=== PATIENT | female | born 1990 | race African-American/Black ===

== ENCOUNTER 2018-09-19 21:24 | Emergency (ER) | payer BC ==
[~2018-09-19] VITALS: Ht 160 cm; Wt 62.1 kg
[~2018-09-19 21:24] MED LIST: MECLIZINE HCL25 MG ORAL; NKM
--- NOTE | 2018-09-19 21:41 | Emergency Room Report ---
History of Present Illness General Chief Complaint: To Be Triaged Source: Patient Present Illness HPI Is a 28-year-old female with no past medical history she presents with epigastric and chest pain. Onset for last several days. Occur after she was eating. Now worse with eating. No fever chills. No radiation to the back. No nausea no vomiting. Pain is crampy in nature. Pain is 7 out of 10. Denies any other complaint. Allergies: Coded Allergies: No Known Allergies (Unverified , 04/21/13) Patient History Past Medical History: none, see triage record, old chart reviewed Past Surgical History: none Pertinent Family History: none Social History: Denies: smoking Now: No Immunizations: other Reviewed Nursing Documentation: PMH: Agreed; PSxH: Agreed Review of Systems Eye: Denies: eye pain, blurred vision ENT: Denies: ear pain, nose congestion, throat swelling Respiratory: Denies: cough, shortness of breath Cardiovascular: Reports: chest pain; Denies: palpitations Gastrointestinal: Reports: abdominal pain; Denies: diarrhea, nausea, vomiting Musculoskeletal: Denies: back pain, joint pain Skin: Denies: rash Neurological: Denies: headache, numbness Endocrine: Denies: increased thirst, increased urine Hematologic/Lymphatic: Denies: easy bruising All Other Systems: negative except mentioned in HPI Physical Exam vitals unremarkable Sp02 EP Interpretation: reviewed, normal General Appearance: well appearing, no apparent distress, alert Head: normocephalic, atraumatic Eyes: bilateral eye PERRL, bilateral eye EOMI ENT: hearing grossly normal, normal pharynx Neck: full range of motion, supple, no meningismus Respiratory: chest non-tender, lungs clear, normal breath sounds Cardiovascular #1: regular rate, rhythm, no murmur Gastrointestinal: normal bowel sounds, non tender, no mass, no organomegaly, no bruit, non-distended Musculoskeletal: back normal, gait/station normal, normal range of motion Psychiatric: mood/affect normal Skin: warm/dry Medical Decision Making Diagnostic Impression: Primary Impression: Epigastric abdominal pain ER Course Patient with epigastric abdominal pain. No evidence of ACS, PE, dissection to name a few. This is most likely peptic ulcer disease, GERD or gastritis. I see no evidence of gallstone. I did a bedside ultrasound and she has negative Kenney sign. Gallbladder is normal without any evidence of any stone. Common bile duct normal. He does have a slight elevation of lipase. She's not a drinker and I see no evidence of any common bile duct stone. Bilirubin is normal. Lab Results Impression labs unremarkable except for slight elevation of lipase and creat EKG Diagnostic Results Rate: normal Rhythm: NSR ST Segments: no acute changes Rhythm Strip Diag. Results Rhythm Strip Time: 22:11 EP Interpretation: yes Rate: 65 Rhythm: NSR, no PVC's, no ectopy Status: improved Disposition: HOME, SELF-CARE Condition: Stable Scripts Omeprazole Magnesium (PRILOSEC OTC) 20 Mg Tablet.dr 20 MG ORAL DAILY, #30 TAB Prov: Kj Hunter MD 09/19/18 Hydrocodone/Acetaminophen 5-325* (HYDROCODONE/ACETAMINOPHEN 5-325*) 1 Each Tablet 1 TAB ORAL Q6H PRN for For Pain, #15 TAB 0 Refills Prov: Kj Hunter MD 09/19/18 Additional Instructions: Follow-up your doctor in 2-5 days if not better. Return if symptom worsen. You may knee referred to see GI doctor for endoscopy if not better. Kj Hunter MD Sep 19, 2018 21:41
[2018-09-19] MEDS ORDERED: Pantoprazole Inj IVP ONE (21:45)
[2018-09-19] MEDS ORDERED: Mylanta II UD 30ml ORAL ONE (21:45)
[2018-09-19] MEDS ORDERED: NKM (21:45)
[2018-09-19 22:16] LABS: BASOPHILS % (AUTO) 1.2 % (0.0-2.0); EOSINOPHILS % (AUTO) 1.7 % (0.0-3.0); HEMATOCRIT 40.3 % (37.0-47.0); HEMOGLOBIN 13.3 G/DL (12.0-16.0); LYMPHOCYTES % (AUTO) 45.8 % (20.0-45.0); MEAN CORPUSCULAR VOLUME 90 FL (80-99); MONOCYTES % (AUTO) 6.5 % (1.0-10.0); NEUTROPHILS % (AUTO) 44.8 % (45.0-75.0); PLATELET COUNT 215 K/UL (150-450); RED BLOOD COUNT 4.48 M/UL (4.20-5.40); RED CELL DISTRIBUTION WIDTH 11.9 % (11.6-14.8); WHITE BLOOD COUNT 9.4 K/UL (4.8-10.8)
[2018-09-19 22:17] LABS: APPEARANCE,URINE CLEAR; BILIRUBIN, URINE NEGATIVE (NEGATIVE); COLOR,URINE PALE YELLOW; GLUCOSE, URINE (UA) NEGATIVE (NEGATIVE); KETONES,URINE NEGATIVE (NEGATIVE); LEUKOCYTE ESTERASE ,URINE NEGATIVE (NEGATIVE); NITRITE,URINE NEGATIVE (NEGATIVE); PH,URINE 5 (4.5-8.0); PROTEIN,URINE NEGATIVE (NEGATIVE); UROBILINOGEN,URINE NORMAL MG/DL (0.0-1.0)
[2018-09-19 22:18] VITALS: BP 118/70
[2018-09-19 22:24] LABS: ANION GAP 9 mmol/L (5-15); BLOOD UREA NITROGEN 18 mg/dL (7-18); CALCIUM 9.4 MG/DL (8.5-10.1); CARBON DIOXIDE 31 MMOL/L (21-32); CHLORIDE 102 MMOL/L (98-107); CREATININE 1.5 MG/DL (0.55-1.30); POTASSIUM 4.2 MMOL/L (3.5-5.1); SODIUM 141 MMOL/L (136-145)
[2018-09-19 22:28] LABS: ALANINE AMINOTRANSFERASE 18 U/L (12-78); ALBUMIN 3.8 G/DL (3.4-5.0); ALKALINE PHOSPHATASE 94 U/L (46-116); ASPARTATE AMINO TRANSFERASE 28 U/L (15-37); BILIRUBIN,TOTAL 0.2 MG/DL (0.2-1.0)
[2018-09-19] MEDS ORDERED: Morphine Sulfate 4mg/ml Inj (IV/IM USE ONLY) IVP ONE ×2 (22:30→23:15)
[2018-09-19] MEDS ORDERED: PRILOSEC OTC20 MG ORAL (23:05)
[2018-09-19] MEDS ORDERED: HYDROCODON-ACE1 EA15 ORAL (23:05)
[2018-09-19 23:17] VITALS: BP 118/70
== END 2018-09-19 23:21 | disposition home or self-care (01) ==
LOC: EMR 21:43
DX: R10.13 Epigastric pain (principal); R07.9 Chest pain, unspecified
CPT/HCPCS: 36415; 80053; 81003; 81025; 83690; 85025; 93005; 96374; 96375; 96376; 99284; C9113; J2270; J2405

== ENCOUNTER 2020-01-21 19:18 | Inpatient (IN) | payer BC ==
[~2020-01-21] VITALS: Ht 157.5 cm; Wt 62.6 kg
[2020-01-21] VITALS (7 sets, daily range): BP systolic 98–121; BP diastolic 64–72
[~2020-01-21 19:18] MED LIST changes: +HYDROCODON-ACE1 EA15 ORAL; +PRILOSEC OTC20 MG ORAL
--- NOTE | 2020-01-21 19:30 | NUR ---
ED Nurse Note: Patient walked in to ED c/o abnormal labs. Per pt, she received a call from Dr. Zepeda and was told that her Hgb is 6 and was asked to go to the ER. Pt stated that she has been bleeding on and off x 10 days but today it gets worse. Afebrile. No SOB. VSS. ERMD at bedside.
--- NOTE | 2020-01-21 19:35 | NUR ---
ED Nurse Note: IV line established. Blood and urine specimen collected and sent to lab.
--- NOTE | 2020-01-21 19:55 | NUR ---
ED Nurse Note: US at bedside.
--- NOTE | 2020-01-21 19:59 | Emergency Room Report ---
History of Present Illness General Chief Complaint: Abnormal Labs Source: Patient Present Illness HPI 30-year-old female history of fibroids presents with abnormal uterine bleeding since January 10, 10 pads a day, no aggravating or relieving factors she feels very lightheaded severity is moderate, constant no chest pain or shortness of breath, her hemoglobin drawn at her doctors was 6, her Dr. Krysten Zepeda sent her to the emergency room for possible blood transfusion and admission patient presents for evaluation Allergies: Coded Allergies: No Known Allergies (Unverified , 04/21/13) COVID-19 Screening Contact w/high risk pt: No Recent Travel to affected area: No Experienced COVID-19 symptoms?: No Patient History Past Medical History: see triage record Last Menstrual Period: 01/11/20 Now: No - not active : 0 Para: 0 Reviewed Nursing Documentation: PMH: Agreed; PSxH: Agreed Nursing Documentation-PMH Past Medical History: No History, Except For Hx Cardiac Problems: No - fibroids Review of Systems All Other Systems: negative except mentioned in HPI Physical Exam Vital Signs Date Time Temp Pulse Resp B/P (MAP) Pulse Ox O2 Delivery O2 Flow Rate FiO2 01/21/20 19:21 99.3 111 16 114/70 (85) 99 01/21/20 19:30 Room Air Sp02 EP Interpretation: reviewed, normal General Appearance: well appearing, no apparent distress, alert Head: normocephalic, atraumatic Eyes: bilateral eye PERRL, bilateral eye EOMI, bilateral eye conjunctivae pale ENT: uvula midline, moist mucus membranes Neck: supple, thyroid normal, supple/symm/no masses Respiratory: lungs clear, no respiratory distress, no retraction, no accessory muscle use Cardiovascular #1: normal peripheral pulses, no edema, no gallop, no murmur, tachycardia Gastrointestinal: non tender, soft, no guarding, no rebound Musculoskeletal: normal inspection Neurologic: alert, oriented x3 Psychiatric: mood/affect normal Skin: no rash, warm/dry Medical Decision Making Diagnostic Impression: Primary Impression: Symptomatic anemia Additional Impressions: Dysfunctional uterine bleeding Fibroids ER Course 30-year-old female presents with dysfunctional uterine bleeding patient with fibroids, feeling lightheaded symptomatic patient with a hemoglobin of 6.3 will transfuse 2 units of blood plan for admission to [facility] for evaluation and treatment Patient admitted to Dr. Hatch Laboratory Tests Test 01/21/20 19:40 01/21/20 19:51 Urine Color Yellow Urine Appearance Clear Urine pH 5 (4.5-8.0) Urine Specific [place] 1.020 (1.005-1.035) Urine Protein 2+ (NEGATIVE) H Urine Glucose (UA) Negative (NEGATIVE) Urine Ketones Negative (NEGATIVE) Urine Blood 5+ (NEGATIVE) H Urine Nitrite Negative (NEGATIVE) Urine Bilirubin Negative (NEGATIVE) Urine Urobilinogen Normal MG/DL (0.0-1.0) Urine Leukocyte Esterase 1+ (NEGATIVE) H Urine RBC 10-15 /HPF (0 - 2) H Urine WBC 2-4 /HPF (0 - 2) Urine Squamous Epithelial Cells Few /LPF (NONE/OCC) Urine Bacteria Few /HPF (NONE) Urine HCG, Qualitative Negative (NEGATIVE) White Blood Count 10.4 K/UL (4.8-10.8) Red Blood Count 2.17 M/UL (4.20-5.40) L Hemoglobin 6.3 G/DL (12.0-16.0) *L Hematocrit 19.6 % (37.0-47.0) L Mean Corpuscular Volume 90 FL (80-99) Mean Corpuscular Hemoglobin 29.2 PG (27.0-31.0) Mean Corpuscular Hemoglobin Concent 32.3 G/DL (32.0-36.0) Red Cell Distribution Width 12.6 % (11.6-14.8) Platelet Count 262 K/UL (150-450) Mean Platelet Volume 8.0 FL (6.5-10.1) Neutrophils (%) (Auto) % (45.0-75.0) Lymphocytes (%) (Auto) % (20.0-45.0) Monocytes (%) (Auto) % (1.0-10.0) Eosinophils (%) (Auto) % (0.0-3.0) Basophils (%) (Auto) % (0.0-2.0) Neutrophils % (Manual) Pending Lymphocytes % (Manual) Pending Platelet Estimate Pending Platelet Morphology Pending Prothrombin Time Pending Prothrombin Time INR Pending Activated Partial Thromboplast Time Pending Sodium Level 142 MMOL/L (136-145) Potassium Level 3.7 MMOL/L (3.5-5.1) Chloride Level 107 MMOL/L (98-107) Carbon Dioxide Level 26 MMOL/L (21-32) Anion Gap 9 mmol/L (5-15) Blood Urea Nitrogen 13 mg/dL (7-18) Creatinine 1.2 MG/DL (0.55-1.30) Estimated Glomerular Filtration Rate > 60 mL/min (>60) Glucose Level 108 MG/DL (74-106) H Calcium Level 8.5 MG/DL (8.5-10.1) Total Bilirubin < 0.1 MG/DL (0.2-1.0) L Aspartate Amino Transferase (AST) 24 U/L (15-37) Alanine Aminotransferase (ALT) 17 U/L (12-78) Alkaline Phosphatase 66 U/L (46-116) Total Protein 6.9 G/DL (6.4-8.2) Albumin 3.1 G/DL (3.4-5.0) L Globulin 3.8 g/dL Albumin/Globulin Ratio 0.8 (1.0-2.7) L Lipase 252 U/L (73-393) Human Chorionic Gonadotropin, Quant Pending CT/MRI/US Diagnostic Results CT/MRI/US Diagnostic Results : Impression Final Report EXAM: US Pelvis Transabdominal, Complete CLINICAL HISTORY: ABD PAIN TECHNIQUE: Real-time complete transabdominal pelvic ultrasound with image documentation. COMPARISON: No relevant prior studies available. FINDINGS: Limitations: Study limited due to patient refusal of endovaginal exam. Uterus/cervix: Fibroid uterus. Anechoic appearing fluid 2.7 x 1.9 cm likely within the distorted endometrial canal which is deviated due to large fibroid probably represents endometrial canal contents, which could be hemorrhagic. This is thought to be likely related to patient vaginal bleeding. This is thought not to be likely to account for patient presentation. Uterus 11.5 x 8.7 x 7 cm Right ovary: Right ovary 4 x 1.6 x 4.2 cm Normal blood flow. Left ovary: Left ovary 2.9 x 1.9 cm Normal blood flow. Free fluid: No free fluid. Bladder: Unremarkable as visualized. Wall is normal thickness for degree of distention. Other findings: Reportedly, the patient is not . IMPRESSION: 1. Reportedly, the patient is not . 2. Study limited due to patient refusal of endovaginal exam. 3. No acute abnormality definitively identified to account for patient presentation. 4. Anechoic appearing fluid likely within the distorted endometrial canal which is deviated due to large fibroid probably represents endometrial canal contents , which could be hemorrhagic. This is thought to be likely related to patient vaginal bleeding. This is thought not to be likely to account for patient presentation. 5. Fibroid uterus. Radiologist: Myles Hwang MD Electronically Signed: 01/21/20 21:12 Study ready at 21:06 and initial results transmitted at 21:12 Last Vital Signs Date Time Temp Pulse Resp B/P (MAP) Pulse Ox O2 Delivery O2 Flow Rate FiO2 01/21/20 19:30 99.3 111 16 114/70 99 Room Air Disposition: ADMITTED INPATIENT Condition: Stable Referrals: NON PHYSICIAN (PCP) Kemal Chen MD Jan 21, 2020 19:59
[2020-01-21 20:07] LABS: APPEARANCE,URINE CLEAR; BILIRUBIN, URINE NEGATIVE (NEGATIVE); COLOR,URINE YELLOW; GLUCOSE, URINE (UA) NEGATIVE (NEGATIVE); KETONES,URINE NEGATIVE (NEGATIVE); LEUKOCYTE ESTERASE ,URINE 1+ (NEGATIVE); NITRITE,URINE NEGATIVE (NEGATIVE); PH,URINE 5 (4.5-8.0); PROTEIN,URINE 2+ (NEGATIVE); UROBILINOGEN,URINE NORMAL MG/DL (0.0-1.0)
--- NOTE | 2020-01-21 20:08 | NUR ---
ED Nurse Note: Blood transfusion consent was signed, witnessed by a nurse. Explained risk and benefits, verbally understood.
[2020-01-21 20:18] LABS: HEMATOCRIT 19.6 % (37.0-47.0); MEAN CORPUSCULAR VOLUME 90 FL (80-99); PLATELET COUNT 262 K/UL (150-450); RED BLOOD COUNT 2.17 M/UL (4.20-5.40); RED CELL DISTRIBUTION WIDTH 12.6 % (11.6-14.8); WHITE BLOOD COUNT 10.4 K/UL (4.8-10.8)
[2020-01-21 20:21] LABS: ANION GAP 9 mmol/L (5-15); BLOOD UREA NITROGEN 13 mg/dL (7-18); CALCIUM 8.5 MG/DL (8.5-10.1); CARBON DIOXIDE 26 MMOL/L (21-32); CHLORIDE 107 MMOL/L (98-107); CREATININE 1.2 MG/DL (0.55-1.30); POTASSIUM 3.7 MMOL/L (3.5-5.1); SODIUM 142 MMOL/L (136-145)
[2020-01-21 20:26] LABS: ALANINE AMINOTRANSFERASE 17 U/L (12-78); ALBUMIN 3.1 G/DL (3.4-5.0); ALBUMIN/GLOBULIN RATIO 0.8 (1.0-2.7); ALKALINE PHOSPHATASE 66 U/L (46-116); ASPARTATE AMINO TRANSFERASE 24 U/L (15-37); BILIRUBIN,TOTAL < 0.1 MG/DL (0.2-1.0)
[2020-01-21 20:31] LABS: HEMOGLOBIN 6.3 G/DL (12.0-16.0)
[2020-01-21 20:43] LABS: INR 0.9 (0.9-1.1)
--- NOTE | 2020-01-21 21:12 | Diagnostic Imaging Report ---
EXAM: US Pelvis Transabdominal, Complete CLINICAL HISTORY: ABD PAIN TECHNIQUE: Real-time complete transabdominal pelvic ultrasound with image documentation. COMPARISON: No relevant prior studies available. FINDINGS: Limitations: Study limited due to patient refusal of endovaginal exam. Uterus/cervix: Fibroid uterus. Anechoic appearing fluid 2.7 x 1.9 cm likely within the distorted endometrial canal which is deviated due to large fibroid probably represents endometrial canal contents, which could be hemorrhagic. This is thought to be likely related to patient vaginal bleeding. This is thought not to be likely to account for patient presentation. Uterus 11.5 x 8.7 x 7 cm Right ovary: Right ovary 4 x 1.6 x 4.2 cm Normal blood flow. Left ovary: Left ovary 2.9 x 1.9 cm Normal blood flow. Free fluid: No free fluid. Bladder: Unremarkable as visualized. Wall is normal thickness for degree of distention. Other findings: Reportedly, the patient is not . IMPRESSION: 1. Reportedly, the patient is not . 2. Study limited due to patient refusal of endovaginal exam. 3. No acute abnormality definitively identified to account for patient presentation. 4. Anechoic appearing fluid likely within the distorted endometrial canal which is deviated due to large fibroid probably represents endometrial canal contents, which could be hemorrhagic. This is thought to be likely related to patient vaginal bleeding. This is thought not to be likely to account for patient presentation. 5. Fibroid uterus.
--- NOTE | 2020-01-21 21:58 | NUR ---
ED Nurse Note: Received blood from the blood bank, verified with another RN. BT started, tolerating well. No ASE noted.
[2020-01-22] VITALS (9 sets, daily range): BP systolic 98–119; BP diastolic 59–72
--- NOTE | 2020-01-22 00:03 | NUR ---
ED Nurse Note: BT done. No ASE bnoted. See VS flowsheet. Blood tubings/ bag are sent back to blood bank.
--- NOTE | 2020-01-22 00:08 | NUR ---
ED Nurse Note: report given to LIV Clifford
--- NOTE | 2020-01-22 00:35 | NUR ---
ED Nurse Note: Received 2nd unit of blood from the blood bank, verified with another RN. BT started, tolerating well. No ASE noted.
[2020-01-22] MEDS ORDERED: Milk of Magnesia 30ml Ud ORAL PRN (00:45)
[2020-01-22] MEDS ORDERED: HYDROcodone/Acetamin 5/325 tab ORAL PRN (00:45)
--- NOTE | 2020-01-22 00:50 | NUR ---
TRANSFER TO FLOOR: Patient transferred to [facility]. Report given to Venessa. Pt alert and orientedx4, verbally responisve. Not in any distress. On BT, patent and infusing well. IV line on left and right AC 20g patent and intact. No skin issues. All belongings sent with [facility] patient.
--- NOTE | 2020-01-22 01:10 | NUR ---
NURSE NOTES: Patient arrived from ED. Patient is awake, alert and oriented x4. Ambulatory. Skin in tact. No signs of distress or SOB. No C/O pain at this time. Blood transfusion in progress - bag 2/2 infusing well. IV intact and patent. Belongings accounted for. Bed locked and in lowest position. Call light in easy reach. Orders received from Dr. Hatch. Will continue to follow plan of care.
--- NOTE | 2020-01-22 07:29 | NUR ---
HAND-OFF: Report given to LIV Little.
--- NOTE | 2020-01-22 07:30 | NUR ---
NURSE NOTES:BEDSIDE ROUNDS WITH NIGHT RNADELAIDA),PT. AWAKE.AOX4,ROOM AIR,NO CO PAIN OR LIGHT HEADED,USING MAURISIO PAD AND DIAPER,PT. WILL CONTINUE TO MONITOR FOR ACTIVE BLEEDING.PER REPORT PT.HAD WATERY,REDISH VAGINAL DISCHARGE.WILL CONTINUE TO MONITOR
--- NOTE | 2020-01-22 10:10 | NUR ---
*-* NO INSURANCE INFORMATION IN THE BAR UNABLE TO SEND CLINICALS OR REVIEWS *-*
--- NOTE | 2020-01-22 10:30 | NUR ---
NURSE NOTES:DIAPER AND PERIPAD CHANGE HAD MODERATE AMOUNT OF VAGINAL BLEEDING REDDISH/PINKISH,CLAIMS LIGHTHEADED IS BETTER.DR. MADRID NOTIFIED RE;HGB.:7.6 HCT.:21.4 NO ORDER.
[2020-01-22 10:42] LABS: HEMATOCRIT 21.4 % (37.0-47.0); HEMOGLOBIN 7.6 G/DL (12.0-16.0); MEAN CORPUSCULAR VOLUME 85 FL (80-99); PLATELET COUNT 198 K/UL (150-450); RED BLOOD COUNT 2.53 M/UL (4.20-5.40); RED CELL DISTRIBUTION WIDTH 11.5 % (11.6-14.8); WHITE BLOOD COUNT 7.8 K/UL (4.8-10.8)
[2020-01-22 11:01] LABS: % IRON SATURATION 98 % (15-50); IRON 221 ug/dL (50-175); TOTAL IRON BINDING CAPACITY 226 ug/dL (250-450)
--- NOTE | 2020-01-22 13:45 | History & Physical ---
History of Present Illness General Date patient seen: Jan 21, 2020 Reason for Hospitalization: heavy bleeding from uterine fibroid Present Illness HPI Patient was seen by me in the office on 01/20 for heavy vaginal bleeding . On ultrasound she had a large (7cm ) fibroid with submucousal component and cavity filled with liquid blood and clot. During the evaluation the bleeding was minimal and "has almost stopped" per patient. CBC was drawn. When the results of the CBC returned with severe anemia, patient was called and asked to go to nearest ER for transfusions and possible treatment. While the patient presented to [facility] last night I was not contacted by any of the doctors until the patient herself called me on 01/22/20. Allergies: Coded Allergies: No Known Allergies (Unverified , 04/21/13) COVID-19 Screening Contact w/high risk pt: No Recent Travel to affected area: No Experienced COVID-19 symptoms?: No Medication History Scheduled Meclizine Hcl* (Meclizine*), 25 MG ORAL THREE TIMES A DAY No Known Medications* (NKM - No Known Medications*), 0 ., (Reported) Omeprazole Magnesium (Prilosec Otc), 20 MG ORAL DAILY Scheduled PRN Hydrocodone/Acetaminophen 5-325* (Hydrocodone/Acetaminophen 5-325*), 1 TAB ORAL Q6H PRN for For Pain Patient History History Provided By: Patient Healthcare decision maker N Resuscitation status Full Code Advanced Directive on File No Review of Systems Review of Symptoms General ROS: no weight loss or fever Psychological ROS: no depression or mood changes, no memory loss Ophthalmic ROS: no visual changes or eye irritation ENT ROS: no nasal congestion, hearing loss, dizziness Allergy and Immunology ROS: no allergic symptoms or urticaria Hematological and Lymphatic ROS: no swollen glands, unusual bleeding or bruising Endocrine ROS: no polyuria, polydipsia, weight changes, temperature intolerance Respiratory ROS: no cough, shortness of breath, or wheezing Cardiovascular ROS: no chest pain or dyspnea on exertion Gastrointestinal ROS: denies abdominal pain, bright red blood in stool. Musculoskeletal ROS: no myalgias or arthralgias Neurological ROS: no TIA or stroke symptoms Dermatological ROS: no new or changing skin lesions, rashes or pruritis Physical Exam Physical Exam General appearance: alert, cooperative, no distress, appears stated age Head: Normocephalic, without obvious abnormality, atraumatic Eyes: conjunctivae/corneas clear. PERRL, EOM's intact. Fundi benign Throat: Lips, mucosa, and tongue normal. Teeth and gums normal Neck: supple, symmetrical, trachea midline, no adenopathy, thyroid: not enlarged, symmetric, no tenderness/mass/nodules, no carotid bruit and no JVD Lungs: clear to auscultation bilaterally Heart: regular rate and rhythm, S1, S2 normal, no murmur, click, rub or gallop Abdomen: soft, non-tender. Bowel sounds normal. No masses, no organomegaly Extremities: extremities normal, atraumatic, no cyanosis or edema Pulses: 2+ and symmetric Skin: Skin color, texture, turgor normal. No rashes or lesions Neurologic: Grossly normal Last 24 Hour Vital Signs Date Time Temp Pulse Resp B/P (MAP) Pulse Ox O2 Delivery O2 Flow Rate FiO2 01/22/20 12:00 99.2 88 20 103/68 (80) 99 01/22/20 08:00 99.4 95 18 108/69 (82) 99 01/22/20 07:30 Room Air 01/22/20 03:37 99.1 90 17 119/66 (83) 98 01/22/20 01:12 Room Air 01/22/20 01:00 97.8 91 16 112/72 (85) 100 01/22/20 00:50 98.4 92 15 103/60 100 Room Air 01/22/20 00:50 98.4 92 15 103/60 100 Room Air 01/22/20 00:35 98.4 88 16 108/59 100 Room Air 01/22/20 00:03 98.2 94 14 110/69 100 Room Air 01/21/20 23:43 98.2 87 18 112/64 100 Room Air 01/21/20 23:13 98.2 92 16 109/65 100 Room Air 01/21/20 22:43 98.2 99 13 98/66 100 Room Air 01/21/20 22:28 98.0 94 13 121/64 98 Room Air 01/21/20 22:13 98.0 96 15 110/64 100 Room Air 01/21/20 21:58 98.0 100 19 01/21/20 21:58 98.0 100 19 115/72 100 Room Air 01/21/20 19:30 99.3 111 16 114/70 99 Room Air 01/21/20 19:21 99.3 111 16 114/70 (85) 99 Intake and Output 01/21/20 01/22/20 19:00 07:00 Intake Total 740 ml Balance 740 ml Intake Oral 240 ml Blood Product 500 ml # Voids 3 Laboratory Tests Test 01/21/20 19:40 01/21/20 19:51 01/22/20 10:00 Urine Color Yellow Urine Appearance Clear Urine pH 5 (4.5-8.0) Urine Specific [place] 1.020 (1.005-1.035) Urine Protein 2+ (NEGATIVE) H Urine Glucose (UA) Negative (NEGATIVE) Urine Ketones Negative (NEGATIVE) Urine Blood 5+ (NEGATIVE) H Urine Nitrite Negative (NEGATIVE) Urine Bilirubin Negative (NEGATIVE) Urine Urobilinogen Normal MG/DL (0.0-1.0) Urine Leukocyte Esterase 1+ (NEGATIVE) H Urine RBC 10-15 /HPF (0 - 2) H Urine WBC 2-4 /HPF (0 - 2) Urine Squamous Epithelial Cells Few /LPF (NONE/OCC) Urine Bacteria Few /HPF (NONE) Urine HCG, Qualitative Negative (NEGATIVE) White Blood Count 10.4 K/UL (4.8-10.8) 7.8 K/UL (4.8-10.8) Red Blood Count 2.17 M/UL (4.20-5.40) L 2.53 M/UL (4.20-5.40) L Hemoglobin 6.3 G/DL (12.0-16.0) *L 7.6 G/DL (12.0-16.0) L Hematocrit 19.6 % (37.0-47.0) L 21.4 % (37.0-47.0) L Mean Corpuscular Volume 90 FL (80-99) 85 FL (80-99) Mean Corpuscular Hemoglobin 29.2 PG (27.0-31.0) 30.0 PG (27.0-31.0) Mean Corpuscular Hemoglobin Concent 32.3 G/DL (32.0-36.0) 35.4 G/DL (32.0-36.0) Red Cell Distribution Width 12.6 % (11.6-14.8) 11.5 % (11.6-14.8) L Platelet Count 262 K/UL (150-450) 198 K/UL (150-450) Mean Platelet Volume 8.0 FL (6.5-10.1) 6.4 FL (6.5-10.1) L Neutrophils (%) (Auto) % (45.0-75.0) % (45.0-75.0) Lymphocytes (%) (Auto) % (20.0-45.0) % (20.0-45.0) Monocytes (%) (Auto) % (1.0-10.0) % (1.0-10.0) Eosinophils (%) (Auto) % (0.0-3.0) % (0.0-3.0) Basophils (%) (Auto) % (0.0-2.0) % (0.0-2.0) Differential Total Cells Counted 100 100 Neutrophils % (Manual) 55 % (45-75) 63 % (45-75) Lymphocytes % (Manual) 36 % (20-45) 28 % (20-45) Monocytes % (Manual) 7 % (1-10) 7 % (1-10) Eosinophils % (Manual) 1 % (0-3) 1 % (0-3) Basophils % (Manual) 1 % (0-2) 1 % (0-2) Band Neutrophils 0 % (0-8) 0 % (0-8) Platelet Estimate Adequate Adequate Platelet Morphology Normal Normal Hypochromasia 2+ 3+ Anisocytosis 1+ Prothrombin Time 9.6 SEC (9.30-11.50) Prothromb Time International Ratio 0.9 (0.9-1.1) Activated Partial Thromboplast Time 23 SEC (23-33) Sodium Level 142 MMOL/L (136-145) Potassium Level 3.7 MMOL/L (3.5-5.1) Chloride Level 107 MMOL/L (98-107) Carbon Dioxide Level 26 MMOL/L (21-32) Anion Gap 9 mmol/L (5-15) Blood Urea Nitrogen 13 mg/dL (7-18) Creatinine 1.2 MG/DL (0.55-1.30) Estimat Glomerular Filtration Rate > 60 mL/min (>60) Glucose Level 108 MG/DL (74-106) H Calcium Level 8.5 MG/DL (8.5-10.1) Total Bilirubin < 0.1 MG/DL (0.2-1.0) L Aspartate Amino Transf (AST/SGOT) 24 U/L (15-37) Alanine Aminotransferase (ALT/SGPT) 17 U/L (12-78) Alkaline Phosphatase 66 U/L (46-116) Total Protein 6.9 G/DL (6.4-8.2) Albumin 3.1 G/DL (3.4-5.0) L Globulin 3.8 g/dL Albumin/Globulin Ratio 0.8 (1.0-2.7) L Lipase 252 U/L (73-393) Human Chorionic Gonadotropin, Quant 2 mIU/mL (1-6) Iron Level 221 ug/dL (50-175) H Total Iron Binding Capacity 226 ug/dL (250-450) L Percent Iron Saturation 98 % (15-50) H Unsaturated Iron Binding 5 ug/dL (112-346) L Thyroid Stimulating Hormone (TSH) 2.036 uiU/mL (0.358-3.740) Height (Feet): 5 Height (Inches): 3.00 Weight (Pounds): 138 Medications Current Medications Medications (Trade) Dose Ordered Sig/[place] Route PRN Reason Start Time Stop Time Status Last Admin Dose Admin Acetaminophen (Tylenol) 650 mg Q6H PRN ORAL For Headache 01/22/20 00:30 02/21/20 00:29 01/22/20 13:30 Acetaminophen/ Hydrocodone Bitart ([place] 5/325) 1 tab Q6H PRN ORAL For Pain 01/22/20 00:45 01/29/20 00:44 Magnesium Hydroxide (Mom) 30 ml DAILYPRN PRN ORAL Constipation 01/22/20 00:45 02/21/20 00:44 [facility] Hospital declaration INPATIENT level of care is warranted for this patient because patient is a 89 year old with who presents with suspicion of . I have a high level of concern because . Patient is at high risk for . Plan of care/treatment include . Patient care is expected to be greater than 2 midnights. OBSERVATION level of care is warranted for this patient. Patient is a 89 year old with who presents with . Patient will be admitted for 1 midnight, but if additional night(s) is/are necessary, patient will be converted to inpatient status for the entire hospitalization Disposition: Once the patient is stable to leave the hospital, I anticipate the patient will likely be discharged to the following environment: Estimated discharge date: I spent 70 minutes on this patient's case, and minutes was dedicated to counseling and/or care coordination. MIPS (Merit-based Incentive Payment System) Applicable CPT: 15064, 70656 CHECK ALL THAT ARE MET: Measure #5 (CHF): All ages. Prescribe KRISHNA/ARB upon discharge for patients with left ventricular systolic dysfunction. If not, the reason is clearly documented in the medical chart. Measure #8 (CHF): All ages. Prescribe a beta kentrell upon discharge for patients with left ventricular systolic dysfunction. If not, the reason is clearly documented in the medical chart. Measure #47 Advance care plan or surrogate decision maker documented in the medical record. Measure #130 The provider has documented, updated, or reviewed the patients current medication list and has documented it in the patients note. Measure #374 (All): Send report to referring provider. Measure #407(Sepsis due to MSSA bacteremia): Age 18+ Patient treated with a beta-lactam antibiotic (Nafcillin, Oxacillin or Cefazolin) as definitive therapy. MEDICAL COMPLEXITY High complexity medical decision making (need 2/3 categories) Problem - need 4 points Acute/new problem with new plan for workup (4 points, 1 max) Acute/new problem without additional workup (3 points, 1 max) Unstable chronic problem actively being managed (2 point each, 2 max) Stable chronic problem actively being managed (1 point each, 2 max) Self-limited/transient process (constipation, muscle ache, etc) (1 point each , 2 max) Data - need 4 points Reviewed labs/imaging studies (1 points, 2 max) Independent review of imaging (EKG, xrays, etc) (2 points, 2 max) Discussed case with consult/other MD/RN (2 points, 2 max) High Risk - qualify if have one of the following: Severe exacerbation of acute problem, acute mental status change, IV narcotics , monitoring drug levels (vancomycin, INR, tacrolimus etc) Krysten Zepeda MD Jan 22, 2020 13:45
[2020-01-22] MEDS ORDERED: Tranexamic Acid 500 MG in NS 55 ML IVPB ONE ×2 (15:00→22:00)
--- NOTE | 2020-01-22 15:35 | NUR ---
NURSE NOTES:PERIPAD AND DIAPER CHANGED,WITH SCANT AMOUNT OF PINKISH VAGINAL BLEEDING COMPARED THIS MORNING.WILL MONITOR.
--- NOTE | 2020-01-22 15:36 | NUR ---
NURSE NOTES:NO UNTOWARD REACTION FR.TRAZAMENIC IV.
--- NOTE | 2020-01-22 19:15 | NUR ---
NURSE NOTES: Helped patient change her diaper with peripad. Old peripad was moderately soaked with blood with scant amount on diaper. Patient urinated with some amount of blood in the toilet bowl. Instructed to use call light for assistance. Bed in lowest and lock engaged. Will continue plan of care.
--- NOTE | 2020-01-22 19:23 | NUR ---
HAND-OFF: Report given to CECIL PECK.PT STABLE.
--- NOTE | 2020-01-22 21:45 | NUR ---
NURSE NOTES: Patient was seen by Dr. Huitron. VS checked. Patient complained of lower back pain. Medicated as ordered. 1 unit pRBC started at 21:25. Monitored for 15mins and checked VS, patient has no signs of blood reaction. Will continue to monitor.
--- NOTE | 2020-01-22 23:00 | NUR ---
NURSE NOTES: Instructed patient on NPO at midnight. Patient verbalized understanding.
[2020-01-23] VITALS (20 sets, daily range): BP systolic 92–119; BP diastolic 47–72
--- NOTE | 2020-01-23 00:30 | NUR ---
NURSE NOTES: Transfused 250 volume of 1 unit pRBC. No adverse reactions. Patient tolerated well.
--- NOTE | 2020-01-23 03:59 | NUR ---
NURSE NOTES: Charge nurse helped patient to change patient's diaper. Per CN, diaper had some small amount of blood aside from peripad. Also, on patient's urine. Will continue to monitor.
--- NOTE | 2020-01-23 04:45 | Progress Note ---
DATE: 01/22/2020 INTERNAL MEDICINE PROGRESS NOTE SUBJECTIVE: The patient has no new complaints. She continues to have vaginal bleeding. She received 2 units of packed red blood cells. She was seen by Dr. Krysten Zepeda, hide grader. She has a large uterine fibroid and has had recurring bleeding. She is being considered for myomectomy. OBJECTIVE: LUNGS: Clear. CARDIAC: Regular. No murmur. ABDOMEN: Soft. No focal tenderness. EXTREMITIES: Without edema. LABORATORY DATA: White count 7.8, hemoglobin 7.6. Chemistry panel within normal limits last night. Albumin 3.1. Iron saturation is 98%. However, is after the transfusion and not accurate. Total ferritin is only 19. IMPRESSION: 1. Iron deficiency anemia due to recurring uterine bleeding. 2. Mild protein-calorie malnutrition. PLAN: Additional unit packed red blood cells. Plan Venofer therapy to be added. Await gynecologic intervention or other therapeutic options and discussed discharge to follow. Ramon Hatch M.D. DR: NICHOLAS JOB#: [id number] CC:
--- NOTE | 2020-01-23 04:59 | History and Physical Report ---
DATE OF ADMISSION: 01/21/2020 REASON FOR ADMISSION: Severe anemia. 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 She has had at least 6 months of vaginal bleeding during and between periods with increasing intensity. She had an ultrasound in the emergency room that revealed a 7 centimeter fibroid with liquid clot in the cavity. Her initial hemoglobin was in the range of 6. Transfusions were ordered and hospitalization initiated under my care. PAST MEDICAL HISTORY: Otherwise unremarkable. ALLERGIES: None. MEDICATIONS: Reviewed and reconciled. FAMILY HISTORY: Noncontributory. SOCIAL HISTORY: Denies smoking, alcohol, or substance abuse. REVIEW OF SYSTEMS: A 10-point review of systems performed. All systems negative other than noted above. LABORATORY DATA: Reviewed. test negative. IMPRESSION: 1. Anemia, iron deficiency. 2. Dysfunctional uterine bleeding due to fibroids. 3. Mild protein-calorie malnutrition. PLAN: 1. Transfuse the hemoglobin above 7 grams. 2. Iron replacement to follow. 3. MATERIAL ASSISTANT revaluation. Ramon Hatch M.D. DR: PAPI JOB#: [id number] CC:
[2020-01-23 07:03] LABS: HEMATOCRIT 20.3 % (37.0-47.0); HEMOGLOBIN 7.2 G/DL (12.0-16.0); MEAN CORPUSCULAR VOLUME 85 FL (80-99); PLATELET COUNT 182 K/UL (150-450); RED CELL DISTRIBUTION WIDTH 12.1 % (11.6-14.8); WHITE BLOOD COUNT 7.1 K/UL (4.8-10.8)
--- NOTE | 2020-01-23 07:42 | NUR ---
HAND-OFF: Report given to LIV Owens.
--- NOTE | 2020-01-23 08:29 | History and Physical Report ---
DATE OF ADMISSION: 01/21/2020 HISTORY OF PRESENT ILLNESS: The patient is a 30-year-old who presented to emergency room on 01/21/2020 secondary to heavy vaginal bleeding and anemia. The patient has a history of a known fibroid . she was seen in June and her fibroid at that point was approximately 6 cm. She was started on control pills, but since she did not bleed heavy in subsequent couple of months, she did not take them. When she was seen by me in June 2019, she was not anemic. During the examination on 01/21/2020, the patient had a 7 cm transmural fibroid with a presumably submucous component as well as some mild vaginal bleeding. CBC was obtained and she was sent home. CBC returned with severe anemia, hemoglobin was _6.5 and I asked her to go to ER. Roxie did not contact me, in fact I was not aware that the patient was in the hospital until she called me on 01/22/2020 at about 1 p.m. PAST MEDICAL HISTORY: None. PAST SURGICAL HISTORY: Significant for laparoscopic dermoid removal in 2010. PHYSICAL EXAMINATION: 01/21/2020 vitals per hospital. ABDOMEN: Soft, nondistended. Bimanual exam 14-week fibroid uterus. pelvic exam was performed, there was a clot at cervical os, no bleeding involved. CBC yesterday on admission, her hemoglobin was 6.3, which came up to 7.6 at 10 a.m. today. EXTREMITIES: No clubbing. No cyanosis. No edema. ASSESSMENT AND PLAN: A 30-year-old fibroid with a submucosal component. She was sent to ER due to having heavy dysfunctional bleeding with severe anemia. She also was taking OCPs for one week. She was transfused 2 units. At this point, if it is available in formulary, I would administer tranexamic acid 650 orally t.i.d., however, it is not available in the formulary, so I am going to give her 500 mg IV tranexamic acid and the plan is to stop the bleeding medically and discharge on oral tranexamic acid, then she could sampler pickup However, if the bleeding will not stop, we will have to take her to the operating room for possible open myomectomy. Krysten Zepeda M.D. DR: Ross JOB#: [id number] CC: ANIRUDH
[2020-01-23] MEDS: Iron Sucrose 100 MG in NS 55 ML IV SCH (08:41)
--- NOTE | 2020-01-23 08:45 | NUR ---
NURSE NOTES: Received report from Garfield PECK. Patient is awake and oriented, no acute distress noted, reporting no pain at this time, but noted patient bleeding heavily from vagina, patient saturated adult diaper. Ambulated with patient to bathroom and noted patient passing bright red blood and large blood clots. Patient able to ambulate steadily and denies dizziness. Hbg/Hct this AM 7.2/20.3. Called Dr. sharma at 0810 to notify MD of patient's condition and Hbg/Hct. Received callback from MD and orders received. All orders read back and entered.
[2020-01-23] MEDS ORDERED: cefOXitin 1gm Inj ONE (08:51)
[2020-01-23] MEDS ORDERED: Succinylcholine 20mg/ml 10ml vial ONE (08:51)
[2020-01-23] MEDS ORDERED: Rocuronium Bromide 50mg/5ml Inj IV ONE (08:51)
[2020-01-23] MEDS ORDERED: Propofol 200mg/20ml IV ONE (08:52)
[2020-01-23] MEDS ORDERED: Lidocaine 1% MPF 10mg/ml 5ml ONE (08:52)
[2020-01-23] MEDS ORDERED: fentaNYL 100 mcg/2 mL IV ONE (08:52)
[2020-01-23] MEDS ORDERED: Midazolam 2mg/2ml Inj ONE (08:52)
[2020-01-23] MEDS ORDERED: Bupivacaine w/Epi 0.5% 30ml Vial INJ ONE (08:53)
[2020-01-23] MEDS ORDERED: Ropivacaine 5mg/ml Vial 20ml INJ ONE (08:53)
[2020-01-23] MEDS ORDERED: Bupivacaine 0.25% Inj 30ml INJ ONE (08:53)
--- NOTE | 2020-01-23 09:11 | NUR ---
CASE MANAGEMENT: INITIAL REVIEW 30YR OLD FEMALE FROM HOME CC: ABNORMAL LABS; LOW HEMOGLOBIN SI: SYMPTOMATIC ANEMIA . DYSFUNCTIONAL UTERINE BLEEDING . FIBROIDS 99.3 111 16 114/70 99% ON RA H/H 6.3/19.3 IS:TYLENOL Q6HR/PRN BLOOD TRANSFUSION X2 US PELVIC TRANSABDOMINAL - Fibroid uterus; refusal of endovaginal exam; No acute abnormality definitively identified to account for patient presentation.Anechoic appearing fluid likely within the distorted endometrial canal which is deviated due to large fibroid probably represents endometrial canal contents, which could be hemorrhagic. This is thought to be likely related to patient vaginal bleeding. \: 3E MED SURG UNIT DCP: HOME WHEN STABLE PLAN: MONITOR H/H CASE MANAGEMENT: REVIEW 01/22/20 SI: SYMPTOMATIC ANEMIA . DYSFUNCTIONAL UTERINE BLEEDING . FIBROIDS 99.1 90 17 119/66 98% ON RA H/H 7.6/21.4 UNSAT IRON BINDING 5 IRON 221 TIBC 226 %SAT 98 IS:IV TRANEXAMIC X1 TYLENOL Q6HR/PRN BLOOD TRANSFUSION X1 \: 3E MED SURG UNIT DCP: HOME WHEN STABLE PLAN: MONITOR H/H CASE MANAGEMENT: REVIEW 01/23/20 SI: SYMPTOMATIC ANEMIA . DYSFUNCTIONAL UTERINE BLEEDING . FIBROIDS 97.8 84 19 93/58 100% ON RA H/H 7.2/20.3 IS:TYLENOL Q6HR/PRN BLOOD TRANSFUSION X1 IV TRANEXAMIC X1 \: 3E MED SURG UNIT DCP: HOME WHEN STABLE PLAN: MONITOR H/H POSSIBLE SURGERY FOR MYOMECTOMY IF BLEEDING DOSE NOT STOP
[2020-01-23 09:19] LABS: HEMATOCRIT 20.4 % (37.0-47.0); HEMOGLOBIN 7.2 G/DL (12.0-16.0); MEAN CORPUSCULAR VOLUME 85 FL (80-99); PLATELET COUNT 204 K/UL (150-450); RED BLOOD COUNT 2.41 M/UL (4.20-5.40); WHITE BLOOD COUNT 7.9 K/UL (4.8-10.8)
[2020-01-23 09:30] LABS: INR 0.9 (0.9-1.1)
--- NOTE | 2020-01-23 09:42 | NUR ---
NURSE NOTES: Order received from Dr. Zepeda to add "possible hysterectomy" to consent form. Order read back and entered. MD present to see patient.
--- NOTE | 2020-01-23 09:44 | NUR ---
NURSE NOTES: Patient taken down for surgery by roberto and Dr. Zepeda.
--- NOTE | 2020-01-23 09:45 | NUR ---
NURSE NOTES: Called and endorsed to Winston PECK in OR to administer FFP as ordered.
--- NOTE | 2020-01-23 09:54 | Pre-Procedure Note/Attestation ---
Pre-Procedure Note/Attestation Complete Prior to Procedure Procedure Narrative: exploratory laparotomy, myomectomy, possible hysterectomy Indications for Procedure Pre-Operative Diagnosis: heavy vaginal bleeding, not controlled with ocps and tranexamec acid/ s/p 3 uPRBCs and 7 cm fibroid Attestation I attest that I discussed the nature of the procedure; its benefits; risks and complications; and alternatives (and the risks and benefits of such alternatives ), prior to the procedure, with the patient (or the patient's legal front office representative). I attest that, if there was a reasonable possibility of needing a blood transfusion, the patient (or the patient's legal front office representative) was given the [place] Department [employer] standardized written summary, pursuant to the [place] Blood Safety Act ([place] Health and Safety Code # 1645, as amended). I attest that I re-evaluated the patient just prior to the surgery and that there has been no change in the patient's H&P, except as documented below: Krysten Zepeda MD January 23, 2020 09:54
[2020-01-23] MEDS ORDERED: Neostigmine 1mg/ml 10ml Inj ONE (10:00)
[2020-01-23] MEDS ORDERED: NS Irrig 1000ml ONE (10:00)
[2020-01-23] MEDS ORDERED: Tranexamic Acid 500 MG in NS 55 ML IVPB ONE (10:00)
[2020-01-23] MEDS ORDERED: Sterile Water Irrig 1000ml IRRIG ONE (10:00)
--- NOTE | 2020-01-23 10:01 | General Surgery Progress Note ---
General Surgery-Progress Note Subjective Symptoms: worse Additional Comments pt was seen by me @8pm with bleeding stabilized post first dose of tranexamic, however @8am Graciela called to report heavy bleeding and hg 7.2 s/p 3u of PRBCs. Decision was made to proceed with ex lap myomectomy (hysterectomy as a last resort). Patient consented and OR mobilized for emergency surgery. Objective Last 24 Hour Vital Signs Date Time Temp Pulse Resp B/P (MAP) Pulse Ox O2 Delivery O2 Flow Rate FiO2 01/23/20 04:00 97.8 84 19 93/58 (70) 100 01/23/20 00:00 97.6 76 18 92/56 (68) 100 01/22/20 21:00 Room Air 01/22/20 20:55 98.4 100 17 98/62 (74) 99 01/22/20 16:00 98.6 92 18 109/64 (79) 99 01/22/20 12:00 99.2 88 20 103/68 (80) 99 I&O Intake and Output 01/22/20 01/23/20 19:00 07:00 Intake Total 600 ml 510 ml Balance 600 ml 510 ml Intake Oral 600 ml IV Total 60 ml Blood Product 250 ml Other 200 ml # Voids 3 3 Extremities: no edema, no tenderness, no cyanosis Laboratory Tests Test 01/22/20 10:00 01/22/20 19:51 01/23/20 05:15 01/23/20 08:45 White Blood Count 7.8 K/UL (4.8-10.8) 7.1 K/UL (4.8-10.8) 7.9 K/UL (4.8-10.8) Red Blood Count 2.53 M/UL (4.20-5.40) L 2.40 M/UL (4.20-5.40) L 2.41 M/UL (4.20-5.40) L Hemoglobin 7.6 G/DL (12.0-16.0) L 7.2 G/DL (12.0-16.0) L 7.2 G/DL (12.0-16.0) L Hematocrit 21.4 % (37.0-47.0) L 20.3 % (37.0-47.0) L 20.4 % (37.0-47.0) L Mean Corpuscular Volume 85 FL (80-99) 85 FL (80-99) 85 FL (80-99) Mean Corpuscular Hemoglobin 30.0 PG (27.0-31.0) 30.1 PG (27.0-31.0) 30.0 PG (27.0-31.0) Mean Corpuscular Hemoglobin Concent 35.4 G/DL (32.0-36.0) 35.5 G/DL (32.0-36.0) 35.5 G/DL (32.0-36.0) Red Cell Distribution Width 11.5 % (11.6-14.8) L 12.1 % (11.6-14.8) 12.0 % (11.6-14.8) Platelet Count 198 K/UL (150-450) 182 K/UL (150-450) 204 K/UL (150-450) Mean Platelet Volume 6.4 FL (6.5-10.1) L 6.5 FL (6.5-10.1) 6.6 FL (6.5-10.1) Neutrophils (%) (Auto) % (45.0-75.0) % (45.0-75.0) % (45.0-75.0) Lymphocytes (%) (Auto) % (20.0-45.0) % (20.0-45.0) % (20.0-45.0) Monocytes (%) (Auto) % (1.0-10.0) % (1.0-10.0) % (1.0-10.0) Eosinophils (%) (Auto) % (0.0-3.0) % (0.0-3.0) % (0.0-3.0) Basophils (%) (Auto) % (0.0-2.0) % (0.0-2.0) % (0.0-2.0) Differential Total Cells Counted 100 100 Neutrophils % (Manual) 63 % (45-75) 46 % (45-75) Pending Lymphocytes % (Manual) 28 % (20-45) 41 % (20-45) Pending Monocytes % (Manual) 7 % (1-10) 10 % (1-10) Eosinophils % (Manual) 1 % (0-3) 3 % (0-3) Basophils % (Manual) 1 % (0-2) 0 % (0-2) Band Neutrophils 0 % (0-8) 0 % (0-8) Platelet Estimate Adequate Adequate Pending Platelet Morphology Normal Normal Pending Hypochromasia 3+ Iron Level 221 ug/dL (50-175) H Total Iron Binding Capacity 226 ug/dL (250-450) L Percent Iron Saturation 98 % (15-50) H Unsaturated Iron Binding 5 ug/dL (112-346) L Thyroid Stimulating Hormone (TSH) 2.036 uiU/mL (0.358-3.740) Ferritin 19 NG/ML (8-388) Prothrombin Time 10.0 SEC (9.30-11.50) Prothromb Time International Ratio 0.9 (0.9-1.1) Activated Partial Thromboplast Time 23 SEC (23-33) Fibrinogen 429 mg/dL (200-400) H Imaging see STANLEY from yesterday Assessment Additional Comments patient with heavy bleeding not stabilized with 3 uprbs, ocps tranexamic acid Plan Additional Comments consented for myomectomy/ possible hysterectomy FFP/ plan at least another unit intraOP Krsyten Zepeda MD January 23, 2020 10:01
--- NOTE | 2020-01-23 10:34 | NUR ---
NURSE NOTES: Called Dr. Hatch's office to notify that patient was taken for surgery. Per MD's receptionist/telephone operator, she will notify ..
[2020-01-23] MEDS ORDERED: NS Irrig 1000ml IRRIG ONE (11:08)
[2020-01-23] MEDS ORDERED: Morphine Sulfate 10mg/ml Inj ONE (11:10)
[2020-01-23] MEDS ORDERED: Ketorolac 30mg Inj ONE (11:11)
[2020-01-23] MEDS ORDERED: Glycopyrrolate 0.2mg/ml 1ml Vial ONE (11:11)
[2020-01-23] MEDS ORDERED: Sodium Chloride 10ml vial INJ ONE (11:11)
[2020-01-23] MEDS ORDERED: LR 1000ml 1,000 ML IVLG SCH (11:23)
--- NOTE | 2020-01-23 11:23 | Anethesia Preoperative Eval ---
Anesthesia Pre-op PMH/ROS General Date of Evaluation: January 23, 2020 Time of Evaluation: 10:09 Anesthesiologist: Venkatesh ASA Score: ASA 2 Mallampati Score Class I : Soft palate, uvula, fauces, pillars visible Class II: Soft palate, uvula, fauces visible Class III: Soft palate, base of uvula visible Class IV: Only hard plate visible Mallampati Classification: Class II Surgeon: Preiz Diagnosis: Vaginal bleeding Surgical Procedure: Ex.lap. Myomectomy Anesthesia History: none Family History: no anesthesia problems Allergies: Coded Allergies: No Known Allergies (Unverified , 04/21/13) Medications: see eMAR Patient NPO?: Yes NPO Date: January 23, 2020 NPO Time: 0000 Past Medical History Cardiovascular: Denies: HTN, CAD, VT, valve dz, arrhythmia, other Pulmonary: Denies: asthma, COPD, NEISHA, other Gastrointestinal/Genitourinary: Reports: GERD - ild, other - h/o f uterie fibrids Neurologic/Psychiatric: Denies: dementia, CVA, depression/anxiety, TIA, other Endocrine: Denies: DM, hypothyroidism, steroids, other HEENT: Denies: cataract (L), cataract (R), glaucoma, MECHOOPDA (L), MECHOOPDA (R), other Hematology/Immune: Reports: anemia - mild; Denies: DVT, bleeding disorder, other Musculoskeletal/Integumentary: Denies: OA, RA, DJD, DDD, edema, other PMH Narrative: as above PSxH Narrative: Removal of ovarian cyst Anesthesia Pre-op Phys. Exam Physician Exam Last Vital Signs Date Time Temp Pulse Resp B/P (MAP) Pulse Ox O2 Delivery O2 Flow Rate FiO2 01/23/20 08:00 98.6 93 18 104/64 (77) 99 01/22/20 21:00 Room Air Constitutional: NAD Neurologic: CN 2-12 intact Cardiovascular: RRR, no M/R/G Respiratory: CTA Gastrointestinal: S/NT/ND Airway Exam Mallampati Score: Class II MO: full Neck: flexible ROM: full Teeth: intact Dentures: no upper, no lower Anesthesia Pre-op A/P Labs Hematology Test 01/23/20 05:15 01/23/20 08:45 White Blood Count 7.1 K/UL (4.8-10.8) 7.9 K/UL (4.8-10.8) Red Blood Count 2.40 M/UL (4.20-5.40) L 2.41 M/UL (4.20-5.40) L Hemoglobin 7.2 G/DL (12.0-16.0) L 7.2 G/DL (12.0-16.0) L Hematocrit 20.3 % (37.0-47.0) L 20.4 % (37.0-47.0) L Mean Corpuscular Volume 85 FL (80-99) 85 FL (80-99) Mean Corpuscular Hemoglobin 30.1 PG (27.0-31.0) 30.0 PG (27.0-31.0) Mean Corpuscular Hemoglobin Concent 35.5 G/DL (32.0-36.0) 35.5 G/DL (32.0-36.0) Red Cell Distribution Width 12.1 % (11.6-14.8) 12.0 % (11.6-14.8) Platelet Count 182 K/UL (150-450) 204 K/UL (150-450) Mean Platelet Volume 6.5 FL (6.5-10.1) 6.6 FL (6.5-10.1) Neutrophils (%) (Auto) % (45.0-75.0) % (45.0-75.0) Lymphocytes (%) (Auto) % (20.0-45.0) % (20.0-45.0) Monocytes (%) (Auto) % (1.0-10.0) % (1.0-10.0) Eosinophils (%) (Auto) % (0.0-3.0) % (0.0-3.0) Basophils (%) (Auto) % (0.0-2.0) % (0.0-2.0) Differential Total Cells Counted 100 100 Neutrophils % (Manual) 46 % (45-75) 53 % (45-75) Lymphocytes % (Manual) 41 % (20-45) 36 % (20-45) Monocytes % (Manual) 10 % (1-10) 10 % (1-10) Eosinophils % (Manual) 3 % (0-3) 1 % (0-3) Basophils % (Manual) 0 % (0-2) 0 % (0-2) Band Neutrophils 0 % (0-8) 0 % (0-8) Platelet Estimate Adequate Adequate Platelet Morphology Normal Normal Coagulation Test 01/23/20 08:45 Prothrombin Time 10.0 SEC (9.30-11.50) Prothromb Time International Ratio 0.9 (0.9-1.1) Activated Partial Thromboplast Time 23 SEC (23-33) Fibrinogen 429 mg/dL (200-400) H Chemistry Test 01/22/20 19:51 Ferritin 19 NG/ML (8-388) Risk Assessment & Plan Assessment: ASA 2E Plan: GA with ETT Status Change Before Surgery: No Pre-Antibiotics Drug: Cefoxitin 1gr. Given Within 1 Hr of Incision: Yes Time Given: 11:04 Andres Linn MD January 23, 2020 11:22
[2020-01-23] MEDS ORDERED: Midazolam 2mg/2ml Inj IVP PRN (11:30)
[2020-01-23] MEDS ORDERED: Hydromorphone 0.5mg/0.5ml inj IVP PRN (11:30)
[2020-01-23] MEDS ORDERED: Ketorolac 30mg Inj IV PRN (11:30)
[2020-01-23] MEDS ORDERED: Metoclopramide 10mg/2ml Inj IVP PRN (11:30)
[2020-01-23] MEDS ORDERED: Meperidine 25mg/0.5ml Inj (FOR RIGORS ONLY) IV PRN (11:30)
[2020-01-23] MEDS ORDERED: Acetaminophen (Non formulary) 100 ML IV ONE (11:30)
--- NOTE | 2020-01-23 12:40 | Brief Operative Note ---
Immediate Post Operative Note Operative Note Pre-op Diagnosis: heavy vaginal bleeding, not controlled with ocps and tranexamec acid/ s/p 3 uPRBCs and 7 cm fibroid Procedure: ex lap myomectomy Surgeon: edith Sweeper Brush Maker Machine: marina Anesthesia: general Specimen: yes Complications: none Condition: stable Fluids: crystalloid/ hespan and one u prbcs Estimated Blood Loss: volume - 150 cc Implant(s) used?: No Krysten Zepeda MD January 23, 2020 12:40
--- NOTE | 2020-01-23 12:58 | Immediate Post-Op Evaluation ---
Immediate Post-Op Evalulation Immediate Post-Op Evalulation Procedure: D&C Ex laparotomy, open myomectomy Date of Evaluation: January 23, 2020 Time of Evaluation: 12:56 IV Fluids: 1000 Blood Products: FFP 1 unit, PRBC 1unit Estimated Blood Loss: 100 Urinary Output: 150 Blood Pressure Systolic: 113 Blood Pressure Diastolic: 62 Pulse Rate: 88 Respiratory Rate: 20 O2 Sat by Pulse Oximetry: 99 Temperature (Fahrenheit): 98.1 Pain Score (1-10): 1 Nausea: No Vomiting: No Complications none Patient Status: reacts, patent, extubated, none Hydration Status: adequate Andres Linn MD January 23, 2020 12:58
--- NOTE | 2020-01-23 14:39 | NUR ---
*-* INSURANCE *-* ALL CLINICALS AND REVIEWS HAVE BEEN FAXED TO: [facility]ACKING#[id number] NCM:NONE @THIS TIME FAX FAX CLINICALS TO ABOVE NUMBER
--- NOTE | 2020-01-23 14:53 | NUR ---
NURSE NOTES: Patient returned from surgery at 1410. Received report from Niyah RN. Patient is asleep but arousable to voice, no acute distress noted, reporting mild discomfort in abdomen. Surgical site dressing clean, dry, intact. Bonner to gravity drainage draining clear yellow urine. Right hand IV intact, patent. Patient placed on continuous pulseox and saturating 100% on 2L NC. SCD's on. Side rails upx3, bed low and locked, call light within reach.
--- NOTE | 2020-01-23 16:12 | NUR ---
NURSE NOTES: New orders received from Dr. Zepeda. Orders read back and entered.
[2020-01-23] MEDS: Docusate 100mg cap ORAL SCH (17:42)
[2020-01-23] MEDS: ceFAZolin sod 1 GM in D5W 55 ML IV SCH (17:42)
[2020-01-23] MEDS: HYDROmorphone 1mg/ml Carpuject IVP PRN ×2 (17:43→20:50)
--- NOTE | 2020-01-23 19:33 | NUR ---
HAND-OFF: Report given to Tanya PECK.
--- NOTE | 2020-01-23 19:35 | NUR ---
NURSE NOTES: Receive a report from LIV Owens. Round is done. Pt is awake and alert, but saying tired. No acute distress noted. Pain is tolerating at this time. Re-educate to use I/S for post-op care every hour while awake. Pt verbalizes understanding. Surgery site is clean and intact. Noted mild blood discharge. No N/V/dizziness noted. Concentrated urine is patent via carolina catheter. On O2 2L NC. Spo2: 100%. Call light within reach. Will continue to monitor.
--- NOTE | 2020-01-23 20:10 | NUR ---
NURSE NOTES: Receive a call from Dr. Zepeda and gets new order for stat CBC. Order noted and carried out.
[2020-01-23 20:42] LABS: HEMATOCRIT 22.4 % (37.0-47.0); HEMOGLOBIN 7.3 G/DL (12.0-16.0); MEAN CORPUSCULAR VOLUME 90 FL (80-99); PLATELET COUNT 187 K/UL (150-450); RED BLOOD COUNT 2.49 M/UL (4.20-5.40); RED CELL DISTRIBUTION WIDTH 13.7 % (11.6-14.8); WHITE BLOOD COUNT 10.1 K/UL (4.8-10.8)
[2020-01-23 20:43] LABS: LYMPHOCYTES % (AUTO) 11.6 % (20.0-45.0); MONOCYTES % (AUTO) 6.5 % (1.0-10.0); NEUTROPHILS % (AUTO) 81.1 % (45.0-75.0)
[2020-01-23 20:44] LABS: BASOPHILS % (AUTO) 0.7 % (0.0-2.0); EOSINOPHILS % (AUTO) 0.1 % (0.0-3.0)
--- NOTE | 2020-01-23 21:50 | NUR ---
NURSE NOTES: Receive a call from Dr. Hathc and update pt's conditions including CBC result. Receive a continuos order of O2 2L NC. Will continue to monitor.
--- NOTE | 2020-01-23 21:55 | NUR ---
NURSE NOTES: Communicate with Dr. Zepeda about pt's lab result, urine output, VSS and discharge. Receive new order to start LR 100ml/hr. Read back order. Order noted and carried out. Will continue to monitor.
[2020-01-23] MEDS: LR 1000ml 1,000 ML IV SCH (22:25)
--- NOTE | 2020-01-24 00:14 | Progress Note ---
DATE: 01/23/2020 INTERNAL MEDICINE PROGRESS NOTE SUBJECTIVE: The patient is status post myomectomy. Due to ongoing bleeding, she required an additional unit (fourth unit) of packed red blood cells intraoperatively. Blood pressure now on the low range. Scant bleeding noted. Pain controlled. OBJECTIVE: VITAL SIGNS: Blood pressure 96/63, heart rate 94, respiratory rate 19, temperature 99. LUNGS: Clear. CARDIAC: Regular. ABDOMEN: Soft. EXTREMITIES: No edema. IMPRESSION: Postop day #0 status post myomectomy, concerns remain anemia and blood loss. PLAN: 1. Cardiac monitoring. 2. Pain control. 3. SCDs. 4. May need transfusion of packed red blood cells for further drop in hemoglobin. 5. Nasal oxygen in place. Ramon Hatch M.D. DR: Srinivas JOB#: [id number] CC:
[2020-01-24 00:30] VITALS: BP 107/70
--- NOTE | 2020-01-24 00:50 | NUR ---
NURSE NOTES: Left a message to Dr. Hatch for BT: 100.7.
[2020-01-24] MEDS: HYDROmorphone 1mg/ml Carpuject IVP PRN (00:54)
--- NOTE | 2020-01-24 01:10 | NUR ---
NURSE NOTES: Rely to Dr. Zepeda about pt's BT. Observation for now and continue on ATB and encourage I/S. Will continue to monitor.
--- NOTE | 2020-01-24 02:00 | NUR ---
NURSE NOTES: Rechecked BT as 99.7. Pt is awake and doing I/S. Encouraging while awake. On SCDs bilateral. Will continue to monitor.
[2020-01-24] MEDS: ceFAZolin sod 1 GM in D5W 55 ML IV SCH (02:06)
[2020-01-24 04:00] VITALS: BP 112/67
--- NOTE | 2020-01-24 05:00 | NUR ---
NURSE NOTES: Receive a call from Dr. Hacth. Update pt's BT and taken Tylenol 650mg po for BT 100.5 @ 0112. Receive new order that pt spikes fever 100F above, do one time blood culture x2 and continue Tylenol 650mg q4hr prn. Order noted and carried out. Will continue to monitor.
[2020-01-24 05:49] LABS: HEMATOCRIT 19.2 % (37.0-47.0); MEAN CORPUSCULAR VOLUME 85 FL (80-99); PLATELET COUNT 171 K/UL (150-450); RED BLOOD COUNT 2.28 M/UL (4.20-5.40); RED CELL DISTRIBUTION WIDTH 12.3 % (11.6-14.8); WHITE BLOOD COUNT 11.6 K/UL (4.8-10.8)
[2020-01-24 05:56] LABS: ANION GAP 6 mmol/L (5-15); BLOOD UREA NITROGEN 10 mg/dL (7-18); CARBON DIOXIDE 26 MMOL/L (21-32); CHLORIDE 105 MMOL/L (98-107); SODIUM 137 MMOL/L (136-145)
[2020-01-24 06:05] LABS: HEMOGLOBIN 6.9 G/DL (12.0-16.0)
--- NOTE | 2020-01-24 06:06 | NUR ---
nurse's notes: received a phone call from Jackeline of Lab, a critical value for hemoglobin of 6.9 at 0605; relayed result at 06 to Tanya, RN; primary nurse to inform Dr. Hatch; will continue to follow
--- NOTE | 2020-01-24 06:30 | NUR ---
NURSE NOTES: Receive a call from Dr. Noland and receive a new order of P-RBC 1pint transfusion. Updated pt's BT, urine output and Dr. Hatch's orders. Read back order. Order noted and carried out. Will continue to monitor.
[2020-01-24] MEDS ORDERED: DiphenhydrAMINE 25mg Tab ORAL SCH ×2 (07:30→19:30)
--- NOTE | 2020-01-24 07:30 | NUR ---
HAND-OFF: Report given to LIV Garcia. Round is done.
--- NOTE | 2020-01-24 07:45 | NUR ---
NURSE NOTES: Received report from Gho RN. Patient is awake and oriented, no acute distress noted, reporting mild abdominal pain, patient is fatigued. Surgical site dressing clean, dry, intact. Approximately 50% of seun-pad stained. Bonner to gravity drainage draining clear, yellow urine. IVF running per order. Patient on 2L NC. Called blood bank but blood is not ready yet, will transfuse as ordered when blood ready. Patient updated on plan of care for the day. Side rails upx2, bed low and locked, call light within reach.
[2020-01-24 08:00] VITALS: BP 104/71
[2020-01-24] MEDS: LR 1000ml 1,000 ML IV SCH (08:01)
--- NOTE | 2020-01-24 08:02 | 48 Hour Post Anesthesia Eval ---
Post Anesthesia Evaluation Procedure: D&C Ex laparotomy, open myomectomy Date of Evaluation: January 24, 2020 Time of Evaluation: 08:01 Blood Pressure Systolic: 116 0: 72 Pulse Rate: 68 Respiratory Rate: 20 Temperature (Fahrenheit): 97.6 O2 Sat by Pulse Oximetry: 98 Airway: patent Nausea: No Vomiting: No Pain Intensity: 3 Hydration Status: adequate Cardiopulmonary Status: stable Mental Status/LOC: patient returned to baseline Follow-up Care/Observations: n/a Post-Anesthesia Complications: none Follow-up care needed: N/A Andres Linn MD January 24, 2020 08:02
[2020-01-24] MEDS: Iron Sucrose 100 MG in NS 55 ML IV SCH (08:27)
--- NOTE | 2020-01-24 09:08 | NUR ---
NURSE NOTES: Blood transfusion was started at 0853. No s/s of transfusion reaction noted. VS are stable. Blood running at 120mL/hr.
[2020-01-24] MEDS: Magnesium Oxide 400mg tab ORAL SCH ×2 (09:45→17:51)
[2020-01-24] MEDS: Docusate 100mg cap ORAL SCH ×2 (09:45→17:51)
[2020-01-24] MEDS ORDERED: ceFAZolin sod 1 GM in D5W 55 ML IVPB SCH (10:00)
[2020-01-24] MEDS: HYDROcodone/Acetamin 5/325 tab ORAL PRN ×2 (10:50→21:34)
--- NOTE | 2020-01-24 11:03 | General Surgery Progress Note ---
General Surgery-Progress Note Subjective Procedure Performed ex lap myomectomy Symptoms: improved - bleeding much less postop and c/w post myomectomy with entry into cavity, pain same - not taking pain meds encouraged to take, tolerating diet - clears only at this point but no nausea, passing flatus Objective Last 24 Hour Vital Signs Date Time Temp Pulse Resp B/P (MAP) Pulse Ox O2 Delivery O2 Flow Rate FiO2 01/24/20 08:02 68 20 98 01/24/20 08:00 98.5 108 16 104/71 (82) 97 01/24/20 05:00 98.2 01/24/20 04:52 98.2 01/24/20 04:00 100.5 113 18 112/67 (82) 100 01/24/20 02:00 99.7 18 100 01/24/20 00:30 100.7 106 18 107/70 (82) 100 01/23/20 21:00 Room Air 01/23/20 20:00 99.0 94 19 96/63 (74) 100 01/23/20 16:10 98.4 94 16 99/66 (77) 100 01/23/20 15:40 98.4 97 16 95/47 (63) 100 01/23/20 15:10 98.5 99 16 99/49 (66) 100 01/23/20 14:40 98.4 107 16 99/52 (68) 100 01/23/20 14:10 98.4 01/23/20 14:10 98.0 89 16 96/60 (72) 100 01/23/20 13:54 77 14 103/50 100 Nasal Cannula 3 01/23/20 13:49 98.4 75 15 99/57 100 Nasal Cannula 3 01/23/20 13:45 79 18 103/55 100 Nasal Cannula 3 01/23/20 13:41 98.4 01/23/20 13:40 81 17 104/56 100 Nasal Cannula 3 01/23/20 13:35 97 22 109/62 100 Nasal Cannula 3 01/23/20 13:25 80 20 115/62 100 Nasal Cannula 3 01/23/20 13:20 102 18 113/72 100 Simple Mask 6 01/23/20 13:10 109 20 119/64 100 Simple Mask 6 01/23/20 13:00 94 16 118/66 100 Simple Mask 6 01/23/20 12:58 88 20 99 01/23/20 12:55 89 13 113/61 100 Simple Mask 6 01/23/20 12:50 98.8 92 14 112/61 100 Simple Mask 6 I&O Intake and Output 01/23/20 01/24/20 19:00 07:00 Intake Total 1905 ml 1300 ml Output Total 350 ml 450 ml Balance 1555 ml 850 ml Intake Oral 300 ml 500 ml IV Total 1105 ml 800 ml Blood Product 500 ml Output Urine Total 250 ml 450 ml Estimated Blood Loss 100 ml Dressing: dry - dressing removed Wound: clean, dry, intact Drains: none Respiratory: decreased breath sounds - bilaterally Abdomen: soft, present bowel sounds - tender since no pain meds, non-distended Extremities: no edema, no tenderness, no cyanosis Laboratory Tests Test 01/23/20 20:25 01/24/20 04:45 White Blood Count 10.1 K/UL (4.8-10.8) 11.6 K/UL (4.8-10.8) H Red Blood Count 2.49 M/UL (4.20-5.40) L 2.28 M/UL (4.20-5.40) L Hemoglobin 7.3 G/DL (12.0-16.0) L 6.9 G/DL (12.0-16.0) *L Hematocrit 22.4 % (37.0-47.0) L 19.2 % (37.0-47.0) L Mean Corpuscular Volume 90 FL (80-99) 85 FL (80-99) Mean Corpuscular Hemoglobin 29.4 PG (27.0-31.0) 30.3 PG (27.0-31.0) Mean Corpuscular Hemoglobin Concent 32.7 G/DL (32.0-36.0) 35.9 G/DL (32.0-36.0) Red Cell Distribution Width 13.7 % (11.6-14.8) 12.3 % (11.6-14.8) Platelet Count 187 K/UL (150-450) 171 K/UL (150-450) Mean Platelet Volume 7.2 FL (6.5-10.1) 6.2 FL (6.5-10.1) L Neutrophils (%) (Auto) 81.1 % (45.0-75.0) H % (45.0-75.0) Lymphocytes (%) (Auto) 11.6 % (20.0-45.0) L % (20.0-45.0) Monocytes (%) (Auto) 6.5 % (1.0-10.0) % (1.0-10.0) Eosinophils (%) (Auto) 0.1 % (0.0-3.0) % (0.0-3.0) Basophils (%) (Auto) 0.7 % (0.0-2.0) % (0.0-2.0) Neutrophils % (Manual) Pending Lymphocytes % (Manual) Pending Platelet Estimate Pending Platelet Morphology Pending Sodium Level 137 MMOL/L (136-145) Potassium Level 4.0 MMOL/L (3.5-5.1) Chloride Level 105 MMOL/L (98-107) Carbon Dioxide Level 26 MMOL/L (21-32) Anion Gap 6 mmol/L (5-15) Blood Urea Nitrogen 10 mg/dL (7-18) Creatinine 1.0 MG/DL (0.55-1.30) Estimat Glomerular Filtration Rate > 60 mL/min (>60) Glucose Level 94 MG/DL (74-106) Calcium Level 8.0 MG/DL (8.5-10.1) L Magnesium Level 1.4 MG/DL (1.8-2.4) L Assessment Post-op Diagnosis s/p open myomectomy Hg drop c/w equilibration - patient transfused one more unit secondary to hg <7 and symptomatic with occasional tachy and tired. Additional Comments will control pain better/ remove carolina/ ambulate/ heplock iv/cont Krysten Nuñez MD January 24, 2020 11:03
--- NOTE | 2020-01-24 11:11 | NUR ---
NURSE NOTES: New orders received from Dr. Zepeda. Per MD ok to remove carolina after blood transfusion.
[2020-01-24 12:00] VITALS: BP 113/73
--- NOTE | 2020-01-24 13:00 | NUR ---
NURSE NOTES: Bonner catheter removed per MD order, patient tolerated well. Blood transfusion completed at 1200, patient tolerated transfusion well with no s/s of transfusion reaction.
[2020-01-24] MEDS: ceFAZolin sod 1 GM in D5W 55 ML IVPB SCH ×2 (13:47→20:19)
[2020-01-24 14:45] LABS: BASOPHILS % (AUTO) 0.4 % (0.0-2.0); EOSINOPHILS % (AUTO) 0.5 % (0.0-3.0); HEMATOCRIT 23.5 % (37.0-47.0); HEMOGLOBIN 8.4 G/DL (12.0-16.0); LYMPHOCYTES % (AUTO) 15.9 % (20.0-45.0); MEAN CORPUSCULAR VOLUME 85 FL (80-99); MONOCYTES % (AUTO) 7.2 % (1.0-10.0); NEUTROPHILS % (AUTO) 76.1 % (45.0-75.0); PLATELET COUNT 202 K/UL (150-450); RED BLOOD COUNT 2.78 M/UL (4.20-5.40); RED CELL DISTRIBUTION WIDTH 11.7 % (11.6-14.8); WHITE BLOOD COUNT 12.9 K/UL (4.8-10.8)
--- NOTE | 2020-01-24 15:15 | NUR ---
NURSE NOTES: Dr. Zepeda notified and aware of patient's post transfusion Hbg/Hct, PT/INR, and WBC.
[2020-01-24] MEDS ORDERED: Tubing Blood Filter IV ONE (15:20)
[2020-01-24] MEDS ORDERED: LR 1000ml ONE (15:20)
--- NOTE | 2020-01-24 15:47 | NUR ---
NURSE NOTES: Patient got OOB and ambulated to bathroom, voided without difficulty.
[2020-01-24 16:00] VITALS: BP 105/65
[2020-01-24] MEDS ORDERED: DiphenhydrAMINE 25mg Tab ORAL PRN (16:00)
--- NOTE | 2020-01-24 18:59 | NUR ---
NURSE NOTES: Patient saturated her seun pad in approximately 3.[address] Zepeda notified and aware. Orders were placed by .
--- NOTE | 2020-01-24 19:21 | NUR ---
HAND-OFF: Report given to Tanya PECK.
--- NOTE | 2020-01-24 19:25 | NUR ---
NURSE NOTES: Receive a report from LIV Owens. Round is done. Pt is awake and alert but saying fatigued. No acute distress noted. Pain is tolerating but still complaint for itching sense. Will provide Benadryl one time dose. Offer pain medication but refuses to take. Assist to bathroom. Takes quite some time to go to bathroom d/t pain. Noted light amount of blood discharge. Change pad. No dizziness noted. Call light within reach. Will continue to monitor.
[2020-01-24 20:00] VITALS: BP 112/76
[2020-01-24] MEDS ORDERED: Tranexamic Acid 500 MG in NS 55 ML IVPB SCH (21:00)
[2020-01-24] MEDS: medroxyPROGESTERone 10mg tab ORAL SCH (21:31)
[2020-01-24] MEDS ORDERED: HYDROcodone/Acetamin 10/325 tab ORAL PRN (22:00)
--- NOTE | 2020-01-24 22:00 | NUR ---
NURSE NOTES: Receive a call from Dr. Zepeda. Update pt's conditions- pain/ discharge. Receive new orders- follow up labs: CBC, PT, Fibrogen and Mg, discontinue ATB after 5AM scheduled, and add Dyer 10/325 for severe pain. Read back orders. Order noted and carried out. Will continue to monitor.
--- NOTE | 2020-01-24 23:00 | NUR ---
NURSE NOTES: Pt is asleep after pain medication. No respiratory distress noted. Will continue to monitor.
[2020-01-25] VITALS: BP 112/76
[2020-01-25 04:00] VITALS: BP 119/72
--- NOTE | 2020-01-25 04:40 | NUR ---
NURSE NOTES: Given pain medication. Surgery site dressing kept dry and clean. On abdominal binder for support. No chilling or febrile sensation. Encourage I/S while awake. Will continue to monitor.
[2020-01-25] MEDS ORDERED: ceFAZolin sod 1 GM in D5W 55 ML IVPB SCH (05:00)
--- NOTE | 2020-01-25 05:30 | NUR ---
NURSE NOTES: Assist to use bathroom. Explain to use body mechanism for movement. Change 3 times overnight with light wet. Will continue to monitor.
--- NOTE | 2020-01-25 07:45 | NUR ---
HAND-OFF: Report given to LIV Teresa. Round is done.
[2020-01-25 08:00] VITALS: BP 112/73
--- NOTE | 2020-01-25 08:00 | NUR ---
NURSE NOTES: Received report from Edieo RN, pt a/a/o x4 laying in bed with no signs of distress or other issues at this time. surgical dressing dry and intact. IV on the right LEES gauge# 20, heplock. call light within reach, bed in lowest position, side rales up x2. I will f/u as needed. - possible d/c home today.
[2020-01-25] MEDS: medroxyPROGESTERone 10mg tab ORAL SCH (09:25)
[2020-01-25] MEDS: Docusate 100mg cap ORAL SCH (09:25)
[2020-01-25] MEDS: Iron Sucrose 100 MG in NS 55 ML IV SCH (09:26)
[2020-01-25] MEDS: Magnesium Oxide 400mg tab ORAL SCH ×2 (09:26→10:00)
[2020-01-25 09:42] LABS: BASOPHILS % (AUTO) 0.5 % (0.0-2.0); EOSINOPHILS % (AUTO) 0.9 % (0.0-3.0); HEMATOCRIT 24.1 % (37.0-47.0); HEMOGLOBIN 8.6 G/DL (12.0-16.0); LYMPHOCYTES % (AUTO) 19.7 % (20.0-45.0); MEAN CORPUSCULAR VOLUME 85 FL (80-99); MONOCYTES % (AUTO) 5.5 % (1.0-10.0); NEUTROPHILS % (AUTO) 73.5 % (45.0-75.0); PLATELET COUNT 219 K/UL (150-450); RED BLOOD COUNT 2.85 M/UL (4.20-5.40); RED CELL DISTRIBUTION WIDTH 11.9 % (11.6-14.8); WHITE BLOOD COUNT 13.7 K/UL (4.8-10.8)
[2020-01-25] MEDS ORDERED: Tubing IV Secondary IV ONE (09:58)
[2020-01-25] MEDS: HYDROcodone/Acetamin 5/325 tab ORAL PRN (10:01)
--- NOTE | 2020-01-25 10:13 | General Surgery Progress Note ---
General Surgery-Progress Note Subjective Reason for Consult post myomectomy for heavy bleed Procedure Performed ex lap myomectomy Symptoms: improved, tolerating diet, voiding well, passing flatus, pain decreased Objective Last 24 Hour Vital Signs Date Time Temp Pulse Resp B/P (MAP) Pulse Ox O2 Delivery O2 Flow Rate FiO2 01/25/20 08:00 98.0 82 16 112/73 (86) 100 01/25/20 04:00 98.6 98 18 119/72 (88) 95 01/25/20 00:00 98.2 104 18 112/76 (88) 95 01/24/20 21:00 Nasal Cannula 2.0 01/24/20 20:00 97.1 96 16 112/76 (88) 96 01/24/20 16:00 97.9 94 16 105/65 (78) 95 01/24/20 12:00 98.5 92 16 113/73 (86) 98 I&O Intake and Output 01/24/20 01/25/20 19:00 07:00 Intake Total 955 ml 350 ml Output Total 800 ml Balance 155 ml 350 ml Intake Oral 800 ml 350 ml IV Total 155 ml Output Urine Total 800 ml # Voids 3 3 Dressing: dry, other - no dressing Wound: clean, dry, intact Drains: none Cardiovascular: RSR Respiratory: clear Abdomen: soft, tenderness - appropriately tender, present bowel sounds, non- distended Extremities: no edema, no cyanosis, other - has some pain with walking Laboratory Tests Test 01/24/20 14:05 01/25/20 06:05 White Blood Count 12.9 K/UL (4.8-10.8) H Pending Red Blood Count 2.78 M/UL (4.20-5.40) L Pending Hemoglobin 8.4 G/DL (12.0-16.0) L Pending Hematocrit 23.5 % (37.0-47.0) L Pending Mean Corpuscular Volume 85 FL (80-99) Pending Mean Corpuscular Hemoglobin 30.1 PG (27.0-31.0) Pending Mean Corpuscular Hemoglobin Concent 35.6 G/DL (32.0-36.0) Pending Red Cell Distribution Width 11.7 % (11.6-14.8) Pending Platelet Count 202 K/UL (150-450) Pending Mean Platelet Volume 6.2 FL (6.5-10.1) L Pending Neutrophils (%) (Auto) 76.1 % (45.0-75.0) H Pending Lymphocytes (%) (Auto) 15.9 % (20.0-45.0) L Pending Monocytes (%) (Auto) 7.2 % (1.0-10.0) Pending Eosinophils (%) (Auto) 0.5 % (0.0-3.0) Pending Basophils (%) (Auto) 0.4 % (0.0-2.0) Pending Prothrombin Time 10.3 SEC (9.30-11.50) Pending Prothromb Time International Ratio 1.0 (0.9-1.1) Pending Fibrinogen Pending Magnesium Level Pending Assessment Post-op Diagnosis s/p open myomectomy Hg drop c/w equilibration - patient transfused one more unit secondary to hg <7 and symptomatic with occasional tachy and tired. Plan Additional Comments plan to ambulate/ received venofer today/ discharge if improving at end of day Krysten Zepeda MD January 25, 2020 10:13
[2020-01-25 12:00] VITALS: BP 116/62
[2020-01-25 14:27] LABS: INR 0.9 (0.9-1.1)
--- NOTE | 2020-01-25 15:45 | NUR ---
NURSE NOTES: Received order to dc home today. belongings and discharge instructions given to patient. IV removed prior to d/c. pt is aware that she needs to call Dr. Zepeda office tomorrow to make an appointment for Sunday to remove her lidia. patient verbalized understanding. RN called [facility] pharmacy at [phone] faxed RX at [phone] attention Galdino. he stated that he will have RX ready for pt's miner pick. pt left the floor via w/c with no signs of distress or other issues at this time. pt's mother will provide transportation. I will f/u as needed.
--- NOTE | 2020-01-26 | Progress Note ---
DATE: 01/24/2020 INTERNAL MEDICINE PROGRESS NOTE LATE ENTRY SUBJECTIVE: Postop day 1, myomectomy. Bleeding has significantly decreased. The patient is to receive a unit of packed red blood cells. Vitals are stable. Pain is controlled. Exam reveals mild tenderness around the surgical site with lidia in place. IMPRESSION: 1. Uterine bleeding. 2. Severe anemia status post transfusion. 3. Postop day #1, status post myomectomy. PLAN: 1. Serial hemoglobin. 2. Iron replacement. 3. Pain control. 4. Transitioning from IV to oral regimen. 5. GENERAL MANAGER FOOD notes appreciated. Ramon Hatch M.D. DR: Srinivas JOB#: [id number] CC:
--- NOTE | 2020-01-26 09:15 | Operative Note - Dictated ---
DATE OF OPERATION: 01/24/2020 PREOPERATIVE DIAGNOSES: Heavy bleeding, 7 cm fibroid, severe anemia. POSTOPERATIVE DIAGNOSES: 1. Heavy bleeding, 7 cm fibroid, severe anemia. 2. Submucous fibroid with entry to the cavity. PROCEDURE: Exploratory laparotomy, myomectomy. SURGEON: Krysten Zepeda MD GRAPHICS PROGRAMMER: Iqra Mai MD ANESTHESIOLOGIST: Andres Linn MD ESTIMATED BLOOD LOSS: 150 mL. ANESTHESIA: General endotracheal. PROCEDURE IN DETAIL: After ensuring informed consent, the patient was taken to the operating room where general anesthesia was induced. The patient was sterilely prepped and draped. Weighted speculum was placed into the vagina. HUMI type manipulator was placed inside the uterine cavity to identify the cavity. Next, attention was turned to the abdomen where a long incision was made low transversely and carried down to the level of the fascia. Fascia was nicked in the midline and the fascial incision was extended laterally. Fascia was grasped with Katie and both bluntly and sharply dissected off of the underlying rectus muscles. Rectus muscles were parted in the midline. Peritoneal cavity was entered. . This was injected with 10 mL of and 50 mL of normal saline. Next, the uterus was grasped and brought up into the incision. An incision was made with the Bovie into the uterine serosa and myometrium until the fundal fibroid was intact. It was both bluntly and sharply dissected in the underlying myometrium until the whole fibroid was . Cavity was entered. There were no other lesions in the cavity and the cavity appeared to have endometrium. Cavity was sutured with 2-0 Vicryl and the muscle was sutured with 0 Vicryl in multiple layers until excellent hemostasis was assured. The peritoneal cavity was 03:37 half of normal saline, irrigated and suctioned off. Excellent hemostasis was assured. Peritoneum was closed with 2-0 Vicryl. The fascia was closed with 0 Vicryl. Subcutaneous tissue was closed with 3-0 plain and skin was closed with lidia. At the end of the procedure, all instruments and lap counts were correct x2. Vaginal exam was performed. There was very little vaginal bleeding. Uterine layer was removed. The patient was transferred to recovery area and extubated in a stable condition. She received 1 unit of packed RBC in the operating room as well as staff. Krysten Zepeda M.D. DR: REESE JOB#: [id number] CC:
--- NOTE | 2020-01-26 11:01 | NUR ---
*-* INSURANCE *-* UPDATE CLINICALS AND REVIEWS HAVE BEEN FAXED TO: [employer]#[id number] NCM:NONE @THIS TIME FAX FAX CLINICALS TO ABOVE NUMBER Addendum: 01/26/20 at 1109 by SAMANTHA MCBRIDE DISCHARGE INSTRUCTION FAXED NO DISCHARGE SUMMARY IN THE SYSTEM.
--- NOTE | 2020-01-27 11:16 | Discharge Summary ---
Discharge Summary Discharge Summary _ DATE OF ADMISSION: 01/21/2020 DATE OF DISCHARGE: 01/25/2020 DISCHARGED BY: REASON FOR ADMISSION: 30 years old female was referred by her oracle solutions architect for severe anemia. Patient had 6 months of heavy vaginal bleeding during periods and in between with increased intensity. Pelvic ultrasound revealed fibroid uterus with 7 cm fibroid with a liquid clot in the cavity. Initial hemoglobin was 6.3 , hematocrit 19.6. Urinalysis revealed no evidence of UTI. Urine test was negative. Patient admitted for furtehr management. CONSULTANTS: APPLICATION DEFENSE MANAGER Dr Zepeda HOSPITAL COURSE Patient admitted to medical surgical floor. Patient was transfused to keep hemoglobin above 7. Anemia work-up revealed elevated iron and low ferritin of 19. Iron replacement provided. APPLICATION DEFENSE MANAGER specialist closely followed. Patient was on empiric antibiotic Supplemental oxygen provided and titrated to keep pulse oximetry above 92%. Pain management was addressed as needed. Patient received Provera and tranexamic acid without successful control of bleeding . Patient subsequently undergone on 01/23 exploratory laparotomy and myomectomy. Postoperative care provided. Pain management was addressed as needed. Patient was transfused with total of 5 units of packed red blood cells and 1 unit of fresh frozen plasm while in the hospital. Prior to discharge hemoglobin 8.6 hematocrit 24.1. Patient noted to have low magnesium , which was replaced. Diet was advanced as tolerated, and patient was able to tolerate diet. Pain was controlled. Patient voided without difficulties. Patient clinically stabilized and was ready for discharge. FINAL DIAGNOSES: Dysfunctional uterine bleeding secondary to fibroids Status post exploratory laparotomy and myomectomy Iron deficiency anemia due to recurrent uterine bleeding Mild protein calorie malnutrition DISCHARGE MEDICATIONS: See Medication Reconciliation list. DISCHARGE INSTRUCTIONS: Patient was discharged home Outpatient follow-up with APPLICATION DEFENSE MANAGER as advised. I have been assigned to dictate discharge summary for this account. I was not involved in the patient's management. Leann Woo NP January 27, 2020 11:16
--- NOTE | 2020-01-27 11:38 | NUR ---
*-* INSURANCE *-* DISCHARGE SUMMARY HAS BEEN FAXED TO: [facility]#[id number] NCM:NONE @THIS TIME FAX FAX CLINICALS TO ABOVE NUMBER
== END 2020-01-25 15:45 | disposition home or self-care (01) | DRG 742 ==
LOC: EMR 19:32 → 3E 19:58 → EDBEDREQ 22:05
PROC: 30233N1 Transfusion of Nonautologous Red Blood Cells into Peripheral Vein, Percutaneous Approach (ICD-10-PCS; principal; 2020-01-21)
PROC: 30233K1 Transfusion of Nonautologous Frozen Plasma into Peripheral Vein, Percutaneous Approach (ICD-10-PCS; 2020-01-23)
PROC: 0UB90ZZ Excision of Uterus, Open Approach (ICD-10-PCS; 2020-01-24)
DX: D25.0 Submucous leiomyoma of uterus (principal); E44.1 Mild protein-calorie malnutrition; D50.0 Iron deficiency anemia secondary to blood loss (chronic); N93.8 Other specified abnormal uterine and vaginal bleeding
CPT/HCPCS: 36415; 36430; 76856; 80048; 80053; 81003; 81025; 82728; 83540; 83550; 83690; 83735; 84443; 84702; 85007; 85025; 85384; 85610; 85730; 86850; 86900; 86901; 86920; 86927; 94003; 94150; 99285; J2180; J2250; J2405; J2710; J2795; J7030